=== PATIENT | female | born 1980 | race African-American/Black ===

== ENCOUNTER 2018-11-18 10:09 | Emergency (ER) | payer MEDICAID ==
[~2018-11-18] VITALS: Ht 160 cm; Wt 118.0 kg
[2018-11-18 12:32] VITALS: BP 158/98
== END 2018-11-18 12:34 | disposition home or self-care (01) ==
LOC: ER 10:10
DX: G47.39 Other sleep apnea (principal); E66.9 Obesity, unspecified
CPT/HCPCS: 71045; 93005; 99283

== ENCOUNTER 2018-11-26 08:25 | Emergency (ER) | payer MEDICAID ==
[~2018-11-26] VITALS: Ht 160 cm; Wt 106.8 kg
[2018-11-26 08:27] VITALS: BP 133/94
[2018-11-26] MEDS ORDERED: IBUP-1984 PO (08:59)
== END 2018-11-26 09:11 | disposition home or self-care (01) ==
LOC: ER 08:25
DX: S86.811A Strain of other muscle(s) and tendon(s) at lower leg level, right leg, initial encounter (principal); Z56.0 Unemployment, unspecified; X50.1XXA Overexertion from prolonged static or awkward postures, initial encounter; Y93.89 Activity, other specified; Y92.89 Other specified places as the place of occurrence of the external cause; Y99.9 Unspecified external cause status
CPT/HCPCS: 99282